=== PATIENT | female | born 1985 | race Caucasian/White ===

== ENCOUNTER 2019-10-28 09:42 | Outpatient (CLI) | payer BC, SELFPAY ==
--- NOTE | ~2019-10-28 | XR_ITS ---
EXAMINATION:XR_CERV2-3V_CR DATE: 10/28/2019 10:27 INDICATION: Neck pain TECHNIQUE: AP, lateral, and odontoid views of the cervical spine are provided. COMPARISON: None FINDINGS: Alignment is normal. The odontoid is intact. No fracture is identified. Vertebral body heig hts and disk spaces are normal. Prevertebral soft tissues are normal. IMPRESSION: 1. Normal cervical spine. Reviewed, dictated and finalized at location A. WHINA IMPRESSION: 1. Normal cervical spine.
== END 2019-10-28 09:43 | disposition home or self-care (01) ==
PROVIDERS: PCP Family Medicine; Visit Provider Physician Assistant
DX: M54.2 Cervicalgia (principal)
CPT/HCPCS: 72040

== ENCOUNTER 2021-06-24 10:46 | Outpatient (RCR) | payer BC, SELFPAY ==
[2021-06-24] MEDS: FAMOTIDINE 20 MG TABLET PO (11:14)
[2021-06-24] MEDS: ACETAMINOPHEN 325 MG TABLET 650 MG PO (11:14)
[2021-06-24] MEDS: diphenhydrAMINE HCl CAP 25 MG CAPSULE PO (11:15)
[2021-06-24 11:24] VITALS: BP 133/86; PULSE 83; RESP 18; TEMP 36.4; O2SAT 100
[2021-06-24 12:35] VITALS: BP 113/73
--- NOTE | 2021-06-27 12:22 | PC.NURSE ---
follow up call in COVID infusion; patient feels that she is 'feeling better, increased appetite, reports some stomach pain and soreness in her chest, but all has improved
== END 2021-06-24 16:00 | disposition home or self-care (01) ==
LOC: AMCINF 10:46
PROVIDERS: PCP Family Medicine; Referring Provider Family Medicine; Visit Provider Internal Medicine Hematology & Oncology
DX: Z23 Encounter for immunization (principal); U07.1 COVID-19
CPT/HCPCS: A9270; J7050; M0243

== ENCOUNTER 2021-11-27 18:32 | Emergency (ER) | payer OTHER, BC, SELFPAY ==
[2021-11-27] VITALS (7 sets, daily range): BP systolic 110–139; BP diastolic 65–93; PULSE 73–92; RESP 14–20; TEMP 36.6–36.8; O2SAT 100
--- NOTE | ~2021-11-27 | XR_ITS ---
EXAMINATION: XR chest 1V portable INDICATION: Chest tightness and shortness of breath TECHNIQUE: Portable AP chest at 1919 hours COMPARISON: None available FINDINGS: The lungs are free of acute opacities. There is no pleural effusion or pneumothorax. The ca rdiomediastinal silhouette is normal. IMPRESSION: 1. No acute cardiopulmonary abnormality. Reviewed, dictated and finalized at location F. Y CEMENTER
--- NOTE | 2021-11-27 18:47 | ECG_ITS ---
Measurements Intervals [place] Rate: 74 P: 59 AL: 137 QRS: 16 QRSD: 101 T: 24 QT: 379 QTc: 423 Interpretive Statements SINUS RHYTHM NORMAL ECG Electronically Signed On 11-28-2021 6:25:41 VISION IMPAIRED TEACHER by Delano Galeana D.O.
[2021-11-27 19:40] LABS: Basophils Absolute Auto 0.1 K/mm3 (0.0-0.1); Basophils Percent Auto 0.8 % (0.2-1.2); Eosinophils Absolute Auto 0.1 K/mm3 (0-0.3); Eosinophils Percent Auto 1.8 % (0-4.4); Hematocrit 38.5 % (37.0-47.0); Hemoglobin 12.1 g/dL (12.0-15.0); Immature Granulocyte Absolute 0.01 K/mm3 (0.00-0.031); Immature Granulocyte Percent A 0.2 % (0-0.5); Lymphocytes Absolute Auto 2.46 K/mm3 (0.9-3.2); Lymphocytes Percent Auto 37.8 % (18.3-44.2); Mean Corpuscular HGB Conc 31.4 g/dl (32-36); Mean Corpuscular Hemoglobin 29.7 pg (26-34); Mean Corpuscular Volume 94.6 fl (80-100); Mean Platelet Volume 11.3 fl (7.4-10.4); Monocytes Absolute Auto 0.7 K/mm3 (0.1-0.6); Monocytes Percent Auto 11.1 % (2.6-8.5); Neutrophils Absolute Auto 3.2 K/mm3 (1.3-6.7); Neutrophils Percent Auto 48.3 % (45.5-73.1); Platelet Count Result 197 k/mm3 (150-375); Red Blood Count 4.07 M/mm3 (4.2-5.4); Red Cell Distribution Width 13.2 % (11.5-14.5); White Blood Count 6.5 K/mm3 (4.5-10.0)
[2021-11-27 19:46] LABS: Alanine Aminotransferase 26 U/L (4-35); Alkaline Phosphatase 64 U/L (38-126); Anion Gap 4 mmol/L (8-16); Aspartate Amino Transferase 33 U/L (14-36); Bilirubin,Total 0.3 mg/dL (0.2-1.3); Blood Urea Nitrogen 13 mg/dL (7-17); Calcium 8.3 mg/dL (8.4-10.2); Carbon Dioxide 26 mmol/L (22-30); Chloride 108 mmol/L (98-107); Estimated CRCL calculation 83 ml/min; Estimated Glomerular Filt Rate > 60; Glucose 92 mg/dL (65-110); Potassium 3.7 mmol/L (3.4-5.0); Sodium 138 mmol/L (137-145)
[2021-11-27 19:51] LABS: INR 1.1; Prothrombin Time 13.4 Seconds (11.1-14.7)
--- NOTE | 2021-11-27 19:51 | ED.GENADULT ---
HPI - General Adult General Chief complaint: Environmental Exposure Stated complaint: Environment Exposure Time Seen by Provider: 11/27/21 19:01 Source: patient and RN notes reviewed Mode of arrival: ambulatory Limitations: no limitations History of Present Illness HPI narrative: This is a 36 year old female who presents for evaluation of possible exposure to fentanyl. 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 Patient did not necessary come into contact with fentanyl powder but they were notified of a nurse at hospital developed symptoms after exposure to patient they brought to ER earlier. She reports having brief episodes of headache and also left chest pain. Patient states she was diagnosed with covid in june 2021 and since her diagnosis she has intermittent episodes of left chest squeezing pain with rapid HR that radiates to her back. She has some episodes today but she is not sure if this is her norm or if this is due exposure. She also reports history of migraine headache. She denies history PE, DVT, leg swelling or leg pain. She denies nausea, vomiting or fever. Related Data Home Medications Medication Instructions Recorded Confirmed norgestrel-ethinyl estradiol 1 tablet DAILY 08/18/19 06/24/21 [Viridiana (28)] Allergies Allergy/AdvReac Type Severity Reaction Status Date / Time cefuroxime Allergy Unknown hives Verified 06/24/21 11:29 sumatriptan Allergy Unknown Palpitation Verified 06/24/21 11:29 s Cat Dander Allergy seasonal Uncoded 06/24/21 11:29 Review of Systems Review of Systems: All systems reviewed & are unremarkable except as noted in HPI and below PMFSH Past Medical History Medical History (Updated 11/28/21 @ 00:00 by Cecilio Box) Cough Elevated blood pressure reading in office without diagnosis of hypertension Migraines Surgical History Surgical History (Updated 11/27/21 @ 19:56 by Taniya Gross MD) History of cholecystectomy Social History Social History (Updated 12/09/19 @ 09:40 by Gloria Rico) Smoking status: Never smoker Alcohol intake: never Substance use: never Substance use type: does not use Gender identity (if verbalized by the patient): Female Spiritual care concerns: No Exam Const: General: cooperative, healthy appearing, no acute distress and well developed Orientation/consciousness: patient oriented x3 Limitations: no limitations HENMT: Head: normocephalic and atraumatic Face and sinus: face symmetric Mouth: Yes Normal oral and palatal mucosa present, Yes lip normal, Yes oropharynx normal and Yes moist mucous membranes Eyes: Alignment and Position: alignment normal Eyelids: eyelids normal Pupils: Equal, round and reactive pupils present EOM: EOMs intact bilaterally Resp: Effort & Inspection: normal respiratory effort and able to speak in complete sentences Auscultation: clear to auscultation bilaterally Cardio: Jugular venous distension: no JVD Rate: regular rate Rhythm: regular rhythm Heart sounds: S1 normal heart sound present GI: GI Palp: Yes Soft to palpation, No Firmness to palpation present (GI), No Tenderness to palpation present (GI) and No Guarding due to palpation present (GI) Auscultation: normal bowel sounds Neuro: General: patient oriented x3 Cranial nerves: Yes CN's II-XII intact bilaterally Course Reevaluation(s) Reevaluation #1: Patient has no complaints. It is unclear patient was exposed. labs and vitals stable. She is stable for discharge. Date: 11/27/21 Time: 20:40 Vital Signs Vital signs: Vital Signs Temperature 98.0 F 11/27/21 18:48 Pulse Rate 85 11/27/21 18:48 Respiratory Rate 14 11/27/21 18:48 Blood Pressure 139/76 11/27/21 18:48 Pulse Oximetry 100 11/27/21 18:48 Temperature 97.9 F 11/27/21 20:49 Pulse Rate 74 11/27/21 20:50 Respiratory Rate 14 11/27/21 20:50 Blood Pressure 133/83
[2021-11-27 19:52] LABS: Partial Thromboplastin Time 23.9 SECONDS (22.3-36.8)
[2021-11-27 19:55] LABS: Amphetamine Screen Urine Negative (Negative); Barbiturate Screen Urine Negative (Negative); Benzodiazepines Screen Urine Negative (Negative); Cannabinoid Screen Urine Negative (Negative); Cocaine Screen Urine Negative (Negative); Methadone Screen Urine Negative (Negative); Opiate Screen Urine Negative (Negative); Phencyclidine Screen Urine Negative (Negative)
[2021-11-27 20:09] LABS: Troponin I < 0.012 ng/mL (0.000-0.034)
[2021-11-27 20:19] LABS: D Dimer 0.27 ug/mL (<0.48)
== END 2021-11-27 20:52 | disposition home or self-care (01) ==
PROVIDERS: Emergency Provider General Practice; PCP Family Medicine
DX: R07.89 Other chest pain (principal); Z86.16 Personal history of COVID-19
CPT/HCPCS: 36415; 71045; 80053; 80307; 81025; 83735; 84484; 85025; 85380; 85610; 85730; 93005; 99284

== ENCOUNTER 2022-08-21 12:32 | Outpatient (CLI) | payer BC, SELFPAY ==
--- NOTE | 2022-08-21 13:25 | ECHO_ITS ---
Patient Info Name: Sydni Walsh Age: 36 years : 1985 Gender: Female Ht: 66 in Wt: 200 lbs BSA: 2.09 m2 HR: 78 bpm BP: 133 / 75 mmHg Technical Quality: Good Exam Date: 08/21/2022 1:57 PM Exam Location: [facility] Patient Status: Outpatient Admit Date: 08/21/2022 Staff Ordering Physician: Talya Jennings PA-C Funeral Arrangement Director: Mayra Lee RCS Attending Provider: Garland Caballero MD Referring Physician: Michaela WINTERS; Exam Type: CA echo doppler color flow Study Info Indications R07.89 - Other chest pain Complete two-dimensional, color flow and Doppler transthoracic echocardiogram is performed. Summary 1. Complete two-dimensional, color flow and Doppler transthoracic echocardiogram is performed. 2. Left ventricular chamber dimension is normal. 3. Left ventricular systolic function is normal, estimated at 55-60%. 4. The left ventricular diastolic function is normal. 5. E/e' 6 is not elevated. 6. Left atrial chamber dimension is mildly enlarged. 7. There is trace tricuspid valve regurgitation. 8. No pulmonary hypertension, estimated pulmonary arterial systolic pressure is 32 mmHg. Left Ventricle E/e' 6 is not elevated. Left ventricular chamber dimension is normal. Left ventricular systolic function is normal, estimated at 55-60%. The left ventricular diastolic function is normal. Right Ventricle Right ventricular chamber dimension is normal. Right ventricular systolic function is normal. Left Atria Left atrial chamber dimension is mildly enlarged. Right Atria Right atrial chamber dimension is normal. Aortic Valve The aortic valve is trileaflet. There is no aortic valve stenosis. There is no aortic valve regurgitation. Pulmonic Valve There is no pulmonic regurgitation. Mitral Valve There is no mitral valve stenosis. There is no mitral valve regurgitation. Tricuspid Valve There is trace tricuspid valve regurgitation. No pulmonary hypertension, estimated pulmonary arterial systolic pressure is 32 mmHg. Pericardium/Pleural There is no pericardial effusion. Inferior Vena Cava Normal inferior vena cava with >50% collapse upon inspiration consistent with normal right atrial pressure, 5 mmHg. Aorta The aortic root size at the sinus of Valsalva is normal. Left Ventricular Outflow Tract Name Value Normal LVOT Doppler LVOT Peak Gradient 5 mmHg LVOT Mean Gradient 3 mmHg LVOT VTI 21 cm LVOT VTI/AV VTI Ratio 0.8 Pulmonic Valve Name Value Normal PV Doppler PV Peak Gradient 8 mmHg Mitral Valve Name Value Normal MV Doppler MV Dece
== END 2022-08-21 12:33 | disposition home or self-care (01) ==
LOC: ANHLAB 12:33
PROVIDERS: PCP Family Medicine; Visit Provider Family Medicine
DX: R07.89 Other chest pain (principal); R94.31 Abnormal electrocardiogram [ECG] [EKG]
CPT/HCPCS: 93306

== ENCOUNTER 2022-10-19 09:36 | Outpatient (CLI) | payer OTHER, SELFPAY ==
[2022-10-19 10:07] LABS: Cholesterol 221 mg/dL (0-200); HDL Direct 53 mg/dL; Triglycerides 88 mg/dL (<150)
[2022-10-19 10:18] LABS: LDL Cholesterol Direct 133 mg/dL
== END 2022-10-19 09:37 | disposition home or self-care (01) ==
LOC: ANHLAB 09:37
PROVIDERS: PCP Family Medicine; Visit Provider Internal Medicine Cardiovascular Disease
DX: E66.3 Overweight (principal)
CPT/HCPCS: 36415; 80061

== ENCOUNTER 2022-11-06 08:45 | Outpatient (CLI) | payer OTHER, SELFPAY ==
--- NOTE | 2022-11-06 08:50 | EST_ITS ---
Patient Info Name: Sydni Walsh Age: 37 years : 1985 Gender: Female Ht: 66 in Wt: 220 lbs BSA: 2.20 m2 HR: 78 bpm BP: 129 / 78 mmHg Heart Rhythm: Sinus Rhythm Exam Date: 11/06/2022 8:59 AM Exam Location: [facility] Patient Status: Outpatient Admit Date: 11/06/2022 Staff Ordering Physician: Delano Galeana DO Attending Provider: Delano Galeana DO Exercise Technologist: Evelin Cabezas CT Exercise Physician: Delano Galeana DO Exam Type: CA stress test treadmill Study Info Indications R07.9 - Chest pain, unspecified A treadmill exercise stress test was performed. Summary 1. 1. Negative Terry exercise stress test for ischemic ST changes by ECG criteria. 2. 2. Good functional capacity, achieving 10 METs of workload. 3. 3. Appropriate HR response to exercise. 4. 4. Appropriate HR recovery at 1 minute post exercise. 5. 5. No imaging with stress testing. 6. 6. Patient informed of the above results. Protocol: Terry Stress ECG Details Stage: REST Duration (min): 2 min : 53 sec Speed (mph): 0.0 Grade (%): 0 HR (bpm): 86 SBP (mmHg): 129 DBP (mmHg): 78 METS: --- Stage: REST Duration (min): 10 min : 39 sec Speed (mph): 0.0 Grade (%): 0 HR (bpm): 93 SBP (mmHg): 129 DBP (mmHg): 78 METS: --- Stage: STAGE 1 Duration (min): 1 min : 0 sec Speed (mph): 1.7 Grade (%): 10 HR (bpm): 111 SBP (mmHg): 129 DBP (mmHg): 78 METS: --- Stage: STAGE 1 Duration (min): 2 min : 0 sec Speed (mph): 1.7 Grade (%): 10 HR (bpm): 124 SBP (mmHg): 129 DBP (mmHg): 78 METS: --- Stage: STAGE 1 Duration (min): 3 min : 0 sec Speed (mph): 1.7 Grade (%): 10 HR (bpm): 129 SBP (mmHg): 160 DBP (mmHg): 73 METS: --- Stage: STAGE 2 Duration (min): 1 min : 0 sec Speed (mph): 2.5 Grade (%): 12 HR (bpm): 139 SBP (mmHg): 160 DBP (mmHg): 73 METS: --- Stage: STAGE 2 Duration (min): 2 min : 0 sec Speed (mph): 2.5 Grade (%): 12 HR (bpm): 148 SBP (mmHg): 166 DBP (mmHg): 68 METS: --- Stage: STAGE 2 Duration (min): 3 min : 0 sec Speed (mph): 2.5 Grade (%): 12 HR (bpm): 153 SBP (mmHg): 166 DBP (mmHg): 68 METS: --- Stage: STAGE 3 Duration (min): 1 min : 0 sec Speed (mph): 3.4 Grade (%): 14 HR (bpm): 165 SBP (mmHg): 178 DBP (mmHg): 84 METS: --- Stage: STAGE 3 Duration (min): 2 min : 0 sec Speed (mph): 3.4 Grade (%): 14 HR (bpm): 171 SBP (mmHg): 178 DBP (mmHg): 84 METS: --- Stage: STAGE 3 Duration (min): 2 min : 0 sec Speed (mph): 3.4 Grade (%): 14 HR (bpm): 171 SBP (mmHg): 178 DBP (mmHg): 84 METS: --- Stage: RECOVERY Duration (min): 0 min : 59 sec Speed (mph): 0.0 Grade (%): 0 HR (bpm): 152 SBP (mmHg): 161 DBP (mmHg): 58 METS: ---
== END 2022-11-06 08:46 | disposition home or self-care (01) ==
PROVIDERS: PCP Family Medicine; Visit Provider Internal Medicine Cardiovascular Disease
DX: R07.9 Chest pain, unspecified (principal)
CPT/HCPCS: 93017

== ENCOUNTER 2022-11-09 16:38 | Outpatient (CLI) | payer OTHER, SELFPAY ==
--- NOTE | 2022-11-13 20:23 | WPDHOMESLEEP ---
Sleep Study - Home Unattended Date of Study: 11/09/22 Ordering Provider: Delano Galeana DO Interpreting Provider: Olamide Grande DO Home Sleep Study Type: Watch PAT Height: 1.68 m Weight: 99.79 kg Body Mass Index: 35.5 Neck Circumference (inches): 13.75 [place]: 11 Reason for Sleep Study Atrial enlargement Sleep History The patient is a 37-year-old female with abnormal EKG and atrial enlargement on echocardiogram that had a sleep study ordered by her asphalt layer for evaluation sleep apnea. The patient denies awakening from sleep short of breath. She frequently awakens at night with heartburn, belching or cough. She frequently snores loud enough others complain. She rarely has trouble sleeping when she has a cold. She denies waking up gasping for air throughout the night. She rarely has breathing problems at night observed by herself or others. He rarely sweats excessively at night. She occasionally has heart palpitations or irregular heartbeats during the night. She rarely falls asleep during the day but never she denies sleep paralysis, cataplexy and hypnagogic / hypnopompic hallucinations. She denies having trouble at school or work due to sleepiness. She denies feeling afraid of going to sleep. She occasionally has nightmares. She constantly remembers her dreams. She occasionally has thoughts racing through her mind. She rarely feels sad, depressed and anxious. She frequently has muscular tension. She frequently notices parts of her body jerk. She frequently kicks during the night. She denies having crawling and aching feelings in her legs as well as leg pain during the night. She denies grinding her teeth during sleep and denies awakening with morning jaw pain. She is rarely bothered by pain during the day and occasionally awakened by pain during the night. She occasionally wakes up feeling stiff in the morning. She occasionally wakes up with sore achy muscles. She occasionally wakes up with pain in the neck, spine or other joints. She goes to bed at 10:00 p.m. on both weekdays and weekends. She is able fall asleep immediately. She wakes up at most 3 times throughout the night to urinate. It can take her 20 minutes up to 2 hours to fall back asleep. She wakes up at 6:00 a.m. on both weekdays and weekends. She typically gets 8 hours of sleep or less. She will stay in bed for 5-10 minutes after waking up in the morning. She currently lives with her , child and a few co-workers. She denies consuming any caffeinated beverages within 2 hours of bedtime. She denies engaging in physical exercise before bedtime. She will occasionally watch television before falling asleep. She will occasionally take naps in the afternoon or the evening and it is refreshing. She denies consuming caffeinated beverages throughout the day. She denies tobacco, alcohol and recreational drug use. PMFSH Past Medical History Medical History Cough Elevated blood pressure reading in office without diagnosis of hypertension Migraines Surgical History Surgical History History of cholecystectomy Social History Social History Smoking status: Never smoker Alcohol intake: never Substance use: never Substance use type: does not use Living arrangements: with family Occupation/Education: occupation Gender identity (if verbalized by the patient): Female Spiritual care concerns: No Medications Home Medications Medication Instructions Recorded Confirmed Type norgestrel 0.3 mg-ethinyl 1 tablet DAILY 08/18/19 10/19/22 History estradiol 30 mcg tablet (Viridiana (28)) Sleep Procedure The sleep study was completed using [employer] a technically adequate device with seven channels: peripheral arterial tone, actigraphy, body position, s
[2022-11-13 20:30] VITALS: BMI 35.5
== END 2022-11-10 10:14 | disposition home or self-care (01) ==
PROVIDERS: PCP Family Medicine; Visit Provider Internal Medicine Cardiovascular Disease
DX: R06.83 Snoring (principal); G47.10 Hypersomnia, unspecified
CPT/HCPCS: 95800

== ENCOUNTER 2022-12-12 11:10 | Emergency (ER) | payer OTHER, SELFPAY ==
[2022-12-12 11:30] VITALS: BP 122/83; PULSE 105; RESP 18; TEMP 36.9; O2SAT 100
--- NOTE | 2022-12-12 11:55 | ED.URI ---
HPI - URI/Sore Throat General Chief Complaint: Upper Respiratory Infection Stated Complaint: cough,bilateral ear pain,congestion Time Seen by Provider: 12/12/22 11:55 Source: patient Mode of arrival: ambulatory Limitations: no limitations History of Present Illness HPI Narrative: 37-year-old female presents with complaint of cough, chest congestion, fatigue, body aches and chills for 5 days. Reports throat was painful last night but is better this morning. Afebrile. Denies nausea vomiting diarrhea. Reports she is coughing up a lot of phlegm . No chest pain or shortness of breath. All systems reviewed and negative except as noted above. Related Data Home Medications Medication Instructions Recorded Confirmed norgestrel 0.3 mg-ethinyl 1 tablet DAILY 08/18/19 12/12/22 estradiol 30 mcg tablet (Viridiana (28)) Allergies Allergy/AdvReac Type Severity Reaction Status Date / Time sumatriptan AdvReac Intermediate Palpitation Verified 12/12/22 11:37 s cefuroxime AdvReac Mild hives Verified 12/12/22 11:37 Cat Dander AdvReac Mild seasonal Uncoded 12/12/22 11:37 Review of Systems Review of Systems: CONSTITUTIONAL: Denies fever . Reports fatigue,chills, or sweats. EYES: Denies visual changes, redness, or discharge. ENT: reports rhinorrhea, congestion, sore throat. Denies otalgia. CARDIOVASCULAR: Denies chest pain, palpitations, or edema. RESPIRATORY: reports cough. Denies dyspnea. GASTROINTESTINAL: Denies abdominal pain, nausea, vomiting, or diarrhea. GENITOURINARY: Denies dysuria or hematuria. SKIN: Denies rash or itching. MUSCULOSKELETAL: Denies back pain, joint pain, or myalgia. NEUROLOGIC: Denies headache, numbness, or weakness. PSYCHIATRIC: Denies anxiety or depression. All other systems reviewed are negative, except as documented in HPI. [facility] Past Medical History Medical History Cough Elevated blood pressure reading in office without diagnosis of hypertension Migraines Surgical History Surgical History History of cholecystectomy Social History Social History Smoking status: Never smoker Alcohol intake: never Substance use: never Substance use type: does not use Living arrangements: with family Occupation/Education: occupation Gender identity (if verbalized by the patient): Female Spiritual care concerns: No Comments At time of signature, agree with nursing past medical, surgical, social and family history. There is no relevant family history pertinent to the presenting complaint. Exam Narrative: GENERAL: This is a well-nourished, well-developed patient, in no apparent distress. HEAD: normocephalic, atraumatic. EYES: PERRL. Sclera clear/white. Vision is grossly intact. EARS: External ears normal, auditory canals clear and without drainage, TMs normal without perforation. Hearing grossly intact. NOSE: External nose normal with clear nasal drainage, erythema to both nares, mild congestion. THROAT: Mucous membranes moist, Mild erythema. NECK: Neck supple, non-tender without lymphadenopathy, masses or thyromegaly. CARDIOVASCULAR: Regular rate and rhythm without murmurs, gallops, or rubs. RESPIRATORY: Clear to auscultation. Breath sounds equal bilaterally. No wheezes, rales, or rhonchi. SKIN: warm, Dry, intact with no suspicious lesions or rash, good texture and turgor. NEURO: awake, alert, and oriented to person, place and time. There were no obvious focal neurologic abnormalities. EXTREMITIES: No joint tenderness, effusion, or edema noted. Course Course Level of Care: Express Care Visit Vital Signs Vital signs: Vital Signs Temperature 36.9 C 12/12/22 11:30 Pulse Rate 105 H 12/12/22 11:30 Respiratory Rate 18 12/12/22 11:30 Blood Pressure 122/83 12/12/22 11:30 Pulse Oximetry
== END 2022-12-12 12:13 | disposition home or self-care (01) ==
PROVIDERS: Emergency Provider Nurse Practitioner Family; PCP Family Medicine
DX: J06.9 Acute upper respiratory infection, unspecified (principal)
CPT/HCPCS: 87081; 87880; 99213; G0463

== ENCOUNTER 2023-09-14 13:56 | Outpatient (CLI) | payer OTHER, SELFPAY ==
--- NOTE | ~2023-09-14 | XR_ITS ---
EXAMINATION: XR_[id number]_CR INDICATION: Pleurodynia TECHNIQUE: A frontal view of the chest and 3 views of the bilateral ribs were obtained. COMPARISON: 11/27/2009 FINDINGS: The lungs are free of acute opacities. No pleural effusion or pneumothorax. The cardiomedia stinal silhouette is normal. No displaced rib fracture is identified. Cholecystectomy clips are noted . IMPRESSION: 1. No acute cardiopulmonary abnormality or evidence of displaced rib fracture. Reviewed, dictated and finalized at location B. EGE SPORTS COACH
== END 2023-09-14 13:57 | disposition home or self-care (01) ==
LOC: ANHIMG 13:58
PROVIDERS: PCP Family Medicine; Visit Provider Physician Assistant
DX: R07.81 Pleurodynia (principal)
CPT/HCPCS: 71111

== ENCOUNTER 2023-10-10 08:44 | Outpatient (CLI) | payer OTHER, SELFPAY ==
--- NOTE | ~2023-10-10 | MM_ITS ---
EXAMINATION: MM diagnostic kings BI w cele HISTORY: Chronic worsening rash of the left breast TECHNIQUE: Craniocaudal, mediolateral, and mediolateral oblique 3-D tomosynthesis images of the breas ts were performed and synthetic 2-D images were generated. CAD analysis was submitted and interpreted . High resolution limited left breast ultrasound was performed. COMPARISON: None, baseline BREAST PARENCHYMAL COMPOSITION: The breasts are heterogeneously dense, which may obscure small masses . FINDINGS: MAMMOGRAPHIC FINDINGS: No suspicious mass, calcification, or architectural distortion are identified in either breast to sug gest malignancy. No mammographic correlate is identified for the reported fraction of the left breast . ULTRASOUND: No suspicious cystic or solid mass, or sonographic correlate, are identified for the reported left br east rash. IMPRESSION: 1. No specific mammographic or sonographic correlate is identified for the reported left breast rash. Further evaluation at this time should be based on clinical assessment. Continued follow-up physical examination is recommended. 2. Recommend routine screening mammography beginning at age 40. BI-RADS Category 1: Negative Reviewed, dictated and finalized at location A. BELLHOP CAPTAIN IMPRESSION: 1. No specific mammographic or sonographic correlate is identified for the repo rted left breast rash. Further evaluation at this time should be based on clini margarita assessment. Continued follow-up physical examination is recommended. 2. Recommend routine screening mammography beginning at age 40. BI-RADS Category 1: Negative
== END 2023-10-10 08:45 ==
LOC: MICIMG 08:46
PROVIDERS: PCP Physician Assistant; Visit Provider Obstetrics & Gynecology
DX: N64.59 Other signs and symptoms in breast (principal)
CPT/HCPCS: 76642; 77062; 77066; G0279

== ENCOUNTER 2024-02-06 09:21 | Outpatient (CLI) | payer OTHER, SELFPAY ==
[2024-02-06 10:22] LABS: Alanine Aminotransferase 24 U/L (6-35); Albumin Level 4.2 g/dL (3.5-5.1); Alkaline Phosphatase 78 U/L (38-126); Anion Gap 5 mmol/L (4-12); Aspartate Amino Transferase 28 U/L (14-36); Bilirubin,Total 0.7 mg/dL (0.2-1.3); Blood Urea Nitrogen 11 mg/dL (7-17); Carbon Dioxide 24 mmol/L (22-30); Chloride 109 mmol/L (98-107); Cholesterol 191 mg/dL (0-200); Estimated Glomerular Filt Rate > 60; Glucose 83 mg/dL (65-110); HDL Direct 51 mg/dL; Potassium 4.3 mmol/L (3.4-5.0); Sodium 138 mmol/L (137-145); Triglycerides 73 mg/dL (<150)
[2024-02-06 10:33] LABS: LDL Cholesterol Direct 127 mg/dL
== END 2024-02-06 09:22 | disposition home or self-care (01) ==
LOC: ANHLAB 09:23
PROVIDERS: PCP Family Medicine; Visit Provider Internal Medicine Cardiovascular Disease
DX: E78.5 Hyperlipidemia, unspecified (principal)
CPT/HCPCS: 36415; 80053; 80061